=== PATIENT | male | born 1960 | race African-American/Black ===

== ENCOUNTER → 2018-07-28 17:41 | Emergency (ER) | payer BC ==
[2018-07-28 20:25] LABS: ABS Eosinophils 0.1 10^3/ul (0-0.6); ABS Lymphocytes 1.6 10^3/ul (1.0-4.8); ABS Monocytes 0.5 10^3/ul (0-0.8); ABS Neutrophils 2.5 10^3/ul (1.5-7.7); Eosinophil % 1.6 %; Hematocrit 42 % (42-52); Lymphocyte % 33.7 %; Mean Corpuscular HGB Conc 33 g/dL (31-36); Mean Corpuscular Hemoglobin 27 pg (27-31); Mean Corpuscular Volume 81 fL (80-94); Mean Platelet Volume 7.1 fL (7.4-10.4); Nucleated Red Blood Cells % 0.1; Platelet Count 223 10^3/uL (150-450); Red Blood Count 5.19 10^6 /uL (4.18-5.48); Red Cell Distribution Width 15 % (10.5-15); White Blood Count 4.7 10^3/uL (3.5-10.8)
[2018-07-28 20:31] LABS: INR 1.13 (0.82-1.09)
[2018-07-28 20:44] LABS: Albumin 4.2 g/dL (3.2-5.2); Albumin/Globulin Ratio 1.4 (1-3); BUN/Creatinine Ratio 11.8 (8-20); C Reactive Protein 1.7 mg/L (<8.01); Calcium 9.4 mg/dL (8.6-10.3); EGFR African American 90.5 (>60); EGFR Non-African American 74.8 (>60); Globulin 3.1 g/dL (2-4); Magnesium 1.9 mg/dL (1.9-2.7); Potassium 3.9 mmol/L (3.5-5.0); Total Bilirubin 0.4 mg/dL (0.2-1.0); Total Protein 7.3 g/dL (6.4-8.9)
[2018-07-28 21:24] LABS: TSH (Thyroid Stimulating Horm) 2.15 mcIU/mL (0.34-5.60)
--- NOTE | 2018-07-28 22:15 | ED ---
HPI Chest Pain - HPI Summary HPI Summary: Patient complains of episode of palpitations, lightheadedness, chest/epigastric pressure starting at 6 PM that lasted for minutes. All symptoms resolved prior to arrival in the ED. Patient states he just concerned wants to be checked out. Denies radiation of pain, SOB, fever, cough, sore throat, N/V/D, abdominal pain, change in urine, change in BM. History of prior similar episodes with random onset 2 months. Episodes do not appear to be related to exertion. Also complains of progressive SOB with exertion over the past 2 years. Evaluated for same by pulmonology, has history of COPD. Cardiac evaluation for "chest pressure" episodes pending in 2 weeks. History of recent stress test which did not repeat target heart rate. Nuclear stress test pending. States occasional history of heartburn. Medical history is HTN, COPD. Former smoker, stopped 14 years ago. No family cardiac history. - History of Current Complaint Chief Complaint: EDHypertension Time Seen by Provider: 07/28/18 19:47 Hx Obtained From: Patient Onset/Duration: Started Hours Ago, Resolved Timing: Intermittent Current Severity: None Pain Intensity: 0 Chest Pain Location: Lower Sternal Chest Pain Radiates: No Character: Tightness Aggravating Factor(s): Nothing Alleviating Factor(s): Nothing Associated Signs and Symptoms: Positive: Chest Pain, Shortness of Breath, Lightheadedness, Palpitations - Allergy/Home Medications Allergies/Adverse Reactions: Allergies Allergy/AdvReac Type Severity Reaction Status Date / Time No Known Allergies Allergy Verified 07/28/18 17:49 Home Medications: Home Medications Albuterol HFA INHALER* 1 puff INH Q4HR PRN 07/28/18 [History Confirmed 07/28/18] Breo Ellipta MDI 100/25(NF) 1 puff INH DAILY 07/28/18 [History Confirmed ] Montelukast Sodium 10 mg PO DAILY 07/28/18 [History Confirmed 07/28/18] Spironolactone 25 mg PO DAILY 07/28/18 [History Confirmed 07/28/18] amLODIPine TAB* 10 mg PO DAILY 07/28/18 [History Confirmed 07/28/18] PMH/Surg Hx/FS Hx/Imm Hx Endocrine/Hematology History: Denies: Hx Anticoagulant Therapy Cardiovascular History: Reports: Hx Hypertension - NO MEDS, Hx Rheumatic Fever Respiratory History: Reports: Hx Asthma - CHILD - NO PROBLEMS - RESCUE INHALER, Hx Sleep Apnea History: Denies: Hx Dialysis Sensory History: Reports: Hx Contacts or Glasses - READING GLASSES Denies: Hx Hearing Aid Opthamlomology History: Reports: Hx Contacts or Glasses - READING GLASSES EENT History: Denies: Hx Deafness Neurological History: Denies: Hx Dementia Psychiatric History: Denies: Hx Autism - Surgical History Surgery Procedure, Year, and Place: 2009 EXCISION OF MASS RIGHT THIGH, [facility]. 2010 UVULA SURGERY, [facility] Hx Anesthesia Reactions: No Infectious Disease History: No Infectious Disease History: Denies: Traveled Outside the [place] in Last 30 Days - Family History Known Family History: Positive: None - Social History Alcohol Use: None Substance Use Type: Reports: None Smoking Status (MU): Former Smoker Review of Systems Constitutional: Negative Eyes: Negative ENT: Negative Positive: Chest Pain Positive: Shortness Of Breath Gastrointestinal: Negative Genitourinary: Negative Musculoskeletal: Negative Skin: Negative Neurological: Negative Psychological: Normal All Other Systems Reviewed And Are Negative: Yes Physical Exam - Summary Physical Exam Summary: Chest pain not reproducible. Lung sounds clear to auscultation bilaterally. RRR. Abdomen soft nontender. No peripheral edema. Triage Information Reviewed: Yes Vital Signs On Initial Exam: Initial Vitals Temp Pulse Resp BP Pulse Ox 98.1 F 85 16 198/119 98 07/28/18 17:43 07/28/18 17:43 07/28/18 17:43 07/28/18 17:43 07/28/18 17:43 Vital Signs Reviewed: Yes Appearance: Positive: Well-Appearing Skin: Positive: Warm Head/Face: Positive: Normal Head/Face Inspection Eyes: Positive: Normal Neck: Positive: Supple Respiratory/Lung Sounds: Positive: Clear to Auscultation Cardiovascular: Positive: Normal Abdomen Description: Positive: Nontender Musculoskeletal: Positive: Normal Neurological: Positive: Normal Psychiatric: Positive: Normal AVPU Assessment: Alert - Braeden Coma Scale Best Eye Response: 4 - Spontaneous Best Motor Response: 6 - Obeys Commands Best Verbal Response: 5 - Oriented Coma Scale Total: 15 Diagnostics - Vital Signs Vital Signs Temp Pulse Resp BP Pulse Ox 07/28/18 20:12 70 13 150/96 96 07/28/18 20:00 66 16 99 07/28/18 19:42 67 9 139/95 97 07/28/18 19:12 73 10 134/102 96 07/28/18 19:00 79 14 98 07/28/18 18:42 78 13 150/102 98 07/28/18 18:13 84 98 07/28/18 18:12 86 179/109 97 07/28/18 17:43 98.1 F 85 16 198/119 98 - Laboratory Lab Results: Lab Results 07/28/18 07/28/18 07/28/18 Range/Units 20:16 20:16 20:16 WBC 4.7 (3.5-10.8) 10^3/uL RBC 5.19 (4.18-5.48) 10^6 /uL Hgb 14.0 (14.0-18.0) g/dL Hct 42 (42-52) % MCV 81 (80-94) fL MCH 27 (27-31) pg MCHC 33 (31-36) g/dL RDW 15 (10.5-15) % Plt Count 223 (150-450) 10^3/uL MPV 7.1 L (7.4-10.4) fL Neut % (Auto) 53.2 % Lymph % (Auto) 33.7 % [place] % (Auto) 10.6 % Eos % (Auto) 1.6 % Baso % (Auto) 0.9 % Absolute Neuts (auto) 2.5 (1.5-7.7) 10^3/ul Absolute Lymphs (auto) 1.6 (1.0-4.8) 10^3/ul Absolute Monos (auto) 0.5 (0-0.8) 10^3/ul Absolute Eos (auto) 0.1 (0-0.6) 10^3/ul Absolute Basos (auto) 0.0 (0-0.2) 10^3/ul Absolute Nucleated RBC 0.0 10^3/ul Nucleated RBC % 0.1 INR (Anticoag Therapy) 1.13 H (0.82-1.09) Sodium 137 (135-145) mmol/L Potassium 3.9 (3.5-5.0) mmol/L Chloride 105 (101-111) mmol/L Carbon Dioxide 27 (22-32) mmol/L Anion Gap 5 (2-11) mmol/L BUN 12 (6-24) mg/dL Creatinine 1.02 (0.67-1.17) mg/dL Est GFR ( Amer) 90.5 (>60) Est GFR (Non-Af Amer) 74.8 (>60) BUN/Creatinine Ratio 11.8 (8-20) Glucose 100 (70-100) mg/dL Calcium 9.4 (8.6-10.3) mg/dL Magnesium 1.9 (1.9-2.7) mg/dL Total Bilirubin 0.40 (0.2-1.0) mg/dL AST 19 (13-39) U/L ALT 15 (7-52) U/L Alkaline Phosphatase 63 (34-104) U/L Troponin I 0.00 (<0.04) ng/mL C-Reactive Protein 1.70 (<8.01) mg/L B-Natriuretic Peptide (<=100) pg/mL Total Protein 7.3 (6.4-8.9) g/dL Albumin 4.2 (3.2-5.2) g/dL Globulin 3.1 (2-4) g/dL Albumin/Globulin Ratio 1.4 (1-3) TSH 2.15 (0.34-5.60) mcIU/mL 07/28/18 Range/Units 20:16 WBC (3.5-10.8) 10^3/uL RBC (4.18-5.48) 10^6 /uL Hgb (14.0-18.0) g/dL Hct (42-52) % MCV (80-94) fL MCH (27-31) pg MCHC (31-36) g/dL RDW (10.5-15) % Plt Count (150-450) 10^3/uL MPV (7.4-10.4) fL Neut % (Auto) % Lymph % (Auto) % [place] % (Auto) % Eos % (Auto) % Baso % (Auto) % Absolute Neuts (auto) (1.5-7.7) 10^3/ul Absolute Lymphs (auto) (1.0-4.8) 10^3/ul Absolute Monos (auto) (0-0.8) 10^3/ul Absolute Eos (auto) (0-0.6) 10^3/ul Absolute Basos (auto) (0-0.2) 10^3/ul Absolute Nucleated RBC 10^3/ul Nucleated RBC % INR (Anticoag Therapy) (0.82-1.09) Sodium (135-145) mmol/L Potassium (3.5-5.0) mmol/L Chloride (101-111) mmol/L Carbon Dioxide (22-32) mmol/L Anion Gap (2-11) mmol/L BUN (6-24) mg/dL Creatinine (0.67-1.17) mg/dL Est GFR ( Amer) (>60) Est GFR (Non-Af Amer) (>60) BUN/Creatinine Ratio (8-20) Glucose (70-100) mg/dL Calcium (8.6-10.3) mg/dL Magnesium (1.9-2.7) mg/dL Total Bilirubin (0.2-1.0) mg/dL AST (13-39) U/L ALT (7-52) U/L Alkaline Phosphatase (34-104) U/L Troponin I (<0.04) ng/mL C-Reactive Protein (<8.01) mg/L B-Natriuretic Peptide 15 (<=100) pg/mL Total Protein (6.4-8.9) g/dL Albumin (3.2-5.2) g/dL Globulin (2-4) g/dL Albumin/Globulin Ratio (1-3) TSH (0.34-5.60) mcIU/mL Result Diagrams: 07/28/18 20:16 07/28/18 20:16 Lab Statement: Any lab studies that have been ordered have been reviewed, and results considered in the medical decision making process. Chest Pain Course/Dx - Course Course Of Treatment: Patient complains of episode of palpitations, lightheadedness, chest/epigastric pressure starting at 6 PM that lasted for minutes. All symptoms resolved prior to arrival in the ED. Patient states he just concerned wants to be checked out. Denies radiation of pain, SOB, fever, cough, sore throat, N/V/D, abdominal pain, change in urine, change in BM. History of prior similar episodes with random onset 2 months. Episodes do not appear to be related to exertion. Also complains of progressive SOB with exertion over the past 2 years. Evaluated for same by pulmonology, has history of COPD. Cardiac evaluation for "chest pressure" episodes pending in 2 weeks. History of recent stress test which did not repeat target heart rate. Nuclear stress test pending. States occasional history of heartburn. Medical history is HTN, COPD. Former smoker, stopped 14 years ago. Physical exam:Chest pain not reproducible. Lung sounds clear to auscultation bilaterally. RRR. Abdomen soft nontender. No peripheral edema. Vital signs within normal limits. Labs including troponins negative. EKG sinus rhythm. Chest x-ray negative for acute process. Nuclear stress test pending in 2 weeks. Advised to follow up with cardiology for further evaluation. Already following up with pulmonology for exertional shortness of breath. Patient understands and approves of plan. - Diagnoses Provider Diagnoses: Lightheadedness, Palpitations, Chest pain Discharge - Sign-Out/Discharge Documenting (check all that apply): Patient Departure Patient Received Moderate/Deep Sedation with Procedure: No - Discharge Plan Condition: Stable Disposition: HOME Patient Education Materials: Chest Pain (ED), Heart Palpitations (ED), Lightheadedness (ED) Referrals: Efren Quiros MD [Primary Care Provider] - Additional Instructions: Follow-up which your scheduled appointment with cardiology for further evaluation. Return to the ED for any new or worsening symptoms. - Billing Disposition and Condition Condition: STABLE Disposition: Home
[2018-07-28 23:51] VITALS: BP 141/84
== END | disposition home or self-care (01) ==
LOC: ED 17:41
DX: R00.2 Palpitations (principal); R42 Dizziness and giddiness; R07.9 Chest pain, unspecified; R06.02 Shortness of breath; I10 Essential (primary) hypertension; Z87.891 Personal history of nicotine dependence
CPT/HCPCS: 36415; 71045; 80053; 83735; 83880; 84443; 84484; 85025; 85610; 86140; 93005; 99284